=== PATIENT | female | born 1995 | race Caucasian/White ===

== ENCOUNTER 2023-02-14 13:51 | Outpatient (CLI) | payer OTHER, SELFPAY ==
[2023-02-14 17:05] LABS: Clue Cells No Clue Cells Seen (None Seen); Trichomonas No Trichomonas Seen (None Seen); Yeast No Yeast Seen (None Seen)
[2023-02-14 17:40] LABS: Chlamydia DNA Amplified* NOT DETECTED (No Detected); GC DNA Amplified* NOT DETECTED (No Detected)
[2023-02-14 17:57] LABS: Strep A DNA Probe* NOT DETECTED (Not Detectd)
== END 2023-02-14 13:52 | disposition home or self-care (01) ==
PROVIDERS: Visit Provider Nurse Practitioner Family
DX: J02.9 Acute pharyngitis, unspecified (principal); N89.8 Other specified noninflammatory disorders of vagina
CPT/HCPCS: 87070; 87210; 87491; 87591; 87651

== ENCOUNTER 2023-02-17 13:25 | Outpatient (CLI) | payer OTHER, SELFPAY ==
[2023-02-20 23:00] LABS: Specimen Source Not Provided
== END 2023-02-17 13:26 | disposition home or self-care (01) ==
LOC: KYNREF 13:25
PROVIDERS: Visit Provider Nurse Practitioner Family
DX: J03.90 Acute tonsillitis, unspecified (principal)
CPT/HCPCS: 87491; 87591